=== PATIENT | female | born 1960 | race Caucasian/White ===

== ENCOUNTER 2021-11-15 17:07 | Emergency (ER) | payer MEDICARE ==
[~2021-11-15] VITALS: Ht 172.7 cm; Wt 64.5 kg
[2021-11-15 17:13] VITALS: BP 137/86
[2021-11-15] MEDS ORDERED: LEVOTHYROXIN125 MCG PO (17:39)
[2021-11-15] MEDS ORDERED: LAMICTAL100 M1 PO (17:58)
[2021-11-15 18:02] LABS: HEMATOCRIT 35.1 % (37.0-47.0); HEMOGLOBIN 11.4 g/dl (12.0-16.0); IMMATURE GRANULOCYTES 0.2 % (0.0-5.0); MEAN CELL VOLUME 91.4 fL CALC (80.0-100.0); MEAN CORPUSCULAR HGB 29.7 pG CALC (26.0-32.0); MEAN CORPUSCULAR HGB CONC 32.5 g/dL CAL (32.0-36.0); NEUT# 5.15 thou/uL (2.00-7.15); RED BLOOD COUNT 3.84 mill/uL (4.20-5.60); RED CELL DISTRI WIDTH 17.2 % (11.5-15.5)
[2021-11-15 18:19] LABS: PROTHROMBIN TIME 9.5 SECONDS (9.0-12.5)
[2021-11-15 18:20] LABS: ALBUMIN 4.2 g/dL (3.2-5.0); ALKALINE PHOSPHATASE 77 u/l (38-126); ANION GAP 12 (6-22 (CALC)); BILIRUBIN, TOTAL 0.2 mg/dL (0.0-1.4); BUN 17 mg/dL (7-17); BUN/CREATININE RATIO 20 (12-20 (CALC)); CARBON DIOXIDE 27 mmol/l (22-30); CHLORIDE 102 mmol/l (95-108); CREATININE 0.9 mg/dL (0.5-1.0); GFR FOR AFR.AMER. > 60 ML/MIN (>=60 (CALC)); GFR OTHER RACES > 60 ML/MIN (>=60 (CALC)); POTASSIUM 3.8 mmol/l (3.5-5.1); SGOT/AST 32 u/l (14-36); SODIUM 137 mmol/l (137-146); TOTAL PROTEIN 7.2 g/dL (6.3-8.2)
[2021-11-15 18:32] LABS: MYOGLOBIN 32 ng/mL (0 - 62)
[2021-11-15 19:57] LABS: URINE BILIRUBIN - DIPSTICK NEGATIVE (NEGATIVE); URINE BLOOD DIPSTICK TRACE-INTACT (NEGATIVE); URINE COLOR YELLOW; URINE GLUCOSE - DIPSTICK NEGATIVE (NEGATIVE); URINE KETONE NEGATIVE (NEGATIVE); URINE LEUK ESTERASE NEGATIVE (NEGATIVE); URINE PH 6.5 (4.5-8.0); URINE PROTEIN - DIPSTICK NEGATIVE (NEG-TRACE); URINE SPECIFIC GRAVITY <=1.005; URINE UROBILINOGEN - DIPSTICK 0.2 E.U./dL (0.2)
[2021-11-15 20:09] LABS: URINE NITRITE - DIPSTICK NEGATIVE (Negative)
[2021-11-15 21:18] VITALS: BP 137/86
== END 2021-11-15 21:23 | disposition home or self-care (01) ==
LOC: ED 17:07
PROVIDERS: Family Medicine
DX: R06.02 Shortness of breath (principal); F17.200 Nicotine dependence, unspecified, uncomplicated; T45.516A Underdosing of anticoagulants, initial encounter; Z91.120 Patient's intentional underdosing of medication regimen due to financial hardship; Z86.718 Personal history of other venous thrombosis and embolism; Z85.3 Personal history of malignant neoplasm of breast; Z86.73 Personal history of transient ischemic attack (TIA), and cerebral infarction without residual deficits; Z86.711 Personal history of pulmonary embolism; Z20.822 Contact with and (suspected) exposure to COVID-19
CPT/HCPCS: Q9967

== ENCOUNTER 2022-02-21 10:13 | Emergency (ER) | payer MEDICARE ==
[~2022-02-21] VITALS: Ht 172.7 cm; Wt 66.0 kg
[~2022-02-21 10:13] MED LIST: LAMICTAL100 M1 PO; LEVOTHYROXIN125 MCG PO
[2022-02-21 10:22] VITALS: BP 153/98
[2022-02-21] MEDS ORDERED: XARELTO10 MG PO (10:32)
[2022-02-21 10:49] VITALS: BP 143/86
[2022-02-21 10:55] LABS: ALBUMIN 4.4 g/dL (3.2-5.0); ALKALINE PHOSPHATASE 117 u/l (38-126); ANION GAP 14 (6-22 (CALC)); BILIRUBIN, TOTAL 0.2 mg/dL (0.0-1.4); BUN 14 mg/dL (7-17); BUN/CREATININE RATIO 17 (12-20 (CALC)); CARBON DIOXIDE 27 mmol/l (22-30); CHLORIDE 106 mmol/l (95-108); CREATININE 0.9 mg/dL (0.5-1.0); GFR FOR AFR.AMER. > 60 ML/MIN (>=60 (CALC)); GFR OTHER RACES > 60 ML/MIN (>=60 (CALC)); POTASSIUM 4.4 mmol/l (3.5-5.1); SGOT/AST 33 u/l (14-36); SODIUM 142 mmol/l (137-146); TOTAL PROTEIN 7.4 g/dL (6.3-8.2)
[2022-02-21 11:00] LABS: BASO% 0.3 % (0-3); EOS% 1.1 % (0-8); HEMATOCRIT 34.3 % (37.0-47.0); HEMOGLOBIN 11.1 g/dl (12.0-16.0); IMMATURE GRANULOCYTES 0.2 % (0.0-5.0); LYMPH% 19.4 % (15-41); MEAN CELL VOLUME 96.9 fL CALC (80.0-100.0); MEAN CORPUSCULAR HGB 31.4 pG CALC (26.0-32.0); MEAN CORPUSCULAR HGB CONC 32.4 g/dL CAL (32.0-36.0); MONO% 8.3 % (2-13); NEUT# 7.31 thou/uL (2.00-7.15); NEUT% 70.7 % (42-76); RED BLOOD COUNT 3.54 mill/uL (4.20-5.60); RED CELL DISTRI WIDTH 15.6 % (11.5-15.5)
[2022-02-21] MEDS ORDERED: METOPROL TAR25 MG PO (12:37)
[2022-02-21] MEDS ORDERED: CHOLESTEROL (12:38)
[2022-02-21 12:50] LABS: URINE BILIRUBIN - DIPSTICK NEGATIVE (NEGATIVE); URINE BLOOD DIPSTICK MODERATE (NEGATIVE); URINE COLOR YELLOW; URINE GLUCOSE - DIPSTICK NEGATIVE (NEGATIVE); URINE KETONE NEGATIVE (NEGATIVE); URINE PH 6.5 (4.5-8.0); URINE PROTEIN - DIPSTICK 30 mg/dL (NEG-TRACE); URINE SPECIFIC GRAVITY 1.015; URINE UROBILINOGEN - DIPSTICK 0.2 E.U./dL (0.2)
[2022-02-21 12:54] LABS: URINE LEUK ESTERASE LARGE (NEGATIVE); URINE NITRITE - DIPSTICK POSITIVE (Negative)
[2022-02-21 12:56] LABS: URINE BACTERIA MANY hpf; URINE EPITHELIAL CELLS MANY EPI/hpf (0-FEW); URINE WBC 20-50 WBC/hpf (0-5)
[2022-02-21] MEDS ORDERED: OMNI-PAC300 MG PO (15:06)
[2022-02-21 15:16] VITALS: BP 143/86
== END 2022-02-21 15:25 | disposition home or self-care (01) ==
LOC: ED 10:13
PROVIDERS: Family Medicine
DX: N39.0 Urinary tract infection, site not specified (principal); B96.20 Unspecified Escherichia coli [E. coli] as the cause of diseases classified elsewhere; R07.9 Chest pain, unspecified; Z86.73 Personal history of transient ischemic attack (TIA), and cerebral infarction without residual deficits; Z86.711 Personal history of pulmonary embolism; Z86.718 Personal history of other venous thrombosis and embolism; Z79.01 Long term (current) use of anticoagulants; Z85.3 Personal history of malignant neoplasm of breast

== ENCOUNTER 2022-10-19 08:36 | Observation (INO) | payer MEDICARE ==
[2022-10-19] VITALS (16 sets, daily range): BP systolic 100–123; BP diastolic 61–74
[~2022-10-19] VITALS: Ht 167.6 cm; Wt 64.0 kg
[2022-10-19 10:05] LABS: BASO% 0.9 % (0-3); EOS% 0.2 % (0-8); HEMOGLOBIN 10.5 g/dl (12.0-16.0); IMMATURE GRANULOCYTES 0.2 % (0.0-5.0); LYMPH% 11.5 % (15-41); MEAN CORPUSCULAR HGB 27.5 pG CALC (26.0-32.0); MEAN CORPUSCULAR HGB CONC 30.9 g/dL CAL (32.0-36.0); MONO% 6.1 % (2-13); NEUT# 7.27 thou/uL (2.00-7.15); NEUT% 81.1 % (42-76); RED BLOOD COUNT 3.82 mill/uL (4.20-5.60); RED CELL DISTRI WIDTH 21.9 % (11.5-15.5)
[2022-10-19 11:53] LABS: PROTHROMBIN TIME 9.9 SECONDS (9.0-12.5)
[2022-10-19 13:01] LABS: GFR FOR AFR.AMER. > 60 ML/MIN (>=60 (CALC)); GFR OTHER RACES > 60 ML/MIN (>=60 (CALC))
[2022-10-20] VITALS (8 sets, daily range): BP systolic 90–123; BP diastolic 63–75
[2022-10-20 05:19] LABS: BASO% 1.1 % (0-3); EOS% 2.6 % (0-8); HEMATOCRIT 32.9 % (37.0-47.0); HEMOGLOBIN 10.1 g/dl (12.0-16.0); IMMATURE GRANULOCYTES 0.1 % (0.0-5.0); LYMPH% 26.6 % (15-41); MEAN CORPUSCULAR HGB CONC 30.7 g/dL CAL (32.0-36.0); MONO% 11.6 % (2-13); NEUT# 4.39 thou/uL (2.00-7.15); RED BLOOD COUNT 3.74 mill/uL (4.20-5.60); RED CELL DISTRI WIDTH 21.7 % (11.5-15.5)
[2022-10-20 05:42] LABS: ALBUMIN 3.9 g/dL (3.2-5.0); ALKALINE PHOSPHATASE 71 u/l (38-126); ANION GAP 11 (6-22 (CALC)); BUN 15 mg/dL (7-17); BUN/CREATININE RATIO 17 (12-20 (CALC)); CALCULATED LDLCHOLESTEROL 177 mg/dL (62-129 (CALC)); CARBON DIOXIDE 26 mmol/l (22-30); CHLORIDE 105 mmol/l (95-108); CHOLESTEROL HDL RATIO 3.9 (<4.4 (CALC)); CREATININE 0.9 mg/dL (0.5-1.0); GFR FOR AFR.AMER. > 60 ML/MIN (>=60 (CALC)); GFR OTHER RACES > 60 ML/MIN (>=60 (CALC)); HDL CHOLESTEROL 70 mg/dL (39.0-59.0); POTASSIUM 3.7 mmol/l (3.5-5.1); SGOT/AST 27 u/l (14-36); SODIUM 138 mmol/l (137-146); TOTAL CHOLESTEROL 271 mg/dl (0-199); TOTAL PROTEIN 6.9 g/dL (6.3-8.2); TOTAL TRIGLYCERIDES 119 mg/dl (0-149); VLDL CHOLESTROL 24 mg/dl (1-41 (CALC))
[2022-10-20 05:50] LABS: BILIRUBIN, TOTAL 0.3 mg/dL (0.02-1.3)
== END 2022-10-20 14:01 | disposition home or self-care (01) ==
LOC: ED 08:36 → MS2 13:55
PROVIDERS: Family Medicine; Nurse Practitioner Family; ADMIT Student in an Organized Health Care Education/Training Program; ATTEND Student in an Organized Health Care Education/Training Program
DX: R09.1 Pleurisy (principal); R06.02 Shortness of breath; G40.909 Epilepsy, unspecified, not intractable, without status epilepticus; E03.9 Hypothyroidism, unspecified; K22.70 Barrett's esophagus without dysplasia; C81.90 Hodgkin lymphoma, unspecified, unspecified site; Z92.3 Personal history of irradiation; Z86.711 Personal history of pulmonary embolism; Z86.718 Personal history of other venous thrombosis and embolism; Z86.73 Personal history of transient ischemic attack (TIA), and cerebral infarction without residual deficits; Z85.3 Personal history of malignant neoplasm of breast; Z85.41 Personal history of malignant neoplasm of cervix uteri; Z79.01 Long term (current) use of anticoagulants; R07.9 Chest pain, unspecified
CPT/HCPCS: J1650; Q9967

== ENCOUNTER → 2022-10-19 | Day surgery (SDC) | payer MEDICARE ==
[~2022-10-19] VITALS: Ht 167.6 cm; Wt 66.7 kg
[~2022-10-19] MED LIST changes: +ASPIRIN 81 LOW81 MG PO; +BISOPROL FUM5 MG PO; +CHOLESTEROL; +CRESTOR10 MG PO; +LAMICTAL150 M1 PO; +LAMICTAL25 M2 PO; +LEVOTHYROXIN112 MC1 PO; +METOPROL TAR25 MG PO; +OMNI-PAC300 MG PO; +XARELTO10 MG PO; +ZONISAMIDE25 MG PO
[2022-10-19 07:46] VITALS: BP 112/61
== END | disposition short-term general hospital (02) ==
LOC: ORM 09-21 08:00
PROVIDERS: ATTEND Surgery
DX: Z12.11 Encounter for screening for malignant neoplasm of colon (principal); K22.70 Barrett's esophagus without dysplasia; R07.9 Chest pain, unspecified; Z53.09 Procedure and treatment not carried out because of other contraindication; Z86.73 Personal history of transient ischemic attack (TIA), and cerebral infarction without residual deficits; Z86.711 Personal history of pulmonary embolism; Z86.718 Personal history of other venous thrombosis and embolism; Z85.3 Personal history of malignant neoplasm of breast; Z79.01 Long term (current) use of anticoagulants